=== PATIENT | female | born 1960 | race Caucasian/White ===

== ENCOUNTER 2020-09-12 14:11 | Emergency (ER) | payer SELFPAY ==
[~2020-09-12] VITALS: Ht 162.6 cm; Wt 56.8 kg
[2020-09-12] MEDS ORDERED: methylPREDNISolone SOD SUCC PF 125 MG/2 ML VIAL. IM ONE (15:00)
[2020-09-12] MEDS ORDERED: KETOROLAC 60 MG/2 ML VIAL. IM ONE (15:00)
[2020-09-12] MEDS ORDERED: FLUORESCEIN OPHTH TEST STRIP. ONE (15:05)
[2020-09-12] MEDS ORDERED: FLUORESCEIN OPHTH TEST STRIP. OS ONE (15:15)
[2020-09-12] MEDS ORDERED: TETRACAINE 0.5% OPHTH SOLUTION 4ML BOTTLE. OS ONE (15:15)
--- NOTE | 2020-09-12 15:26 | PHYS DOC ---
General Adult EDM: Chief Complaint: FOREIGN BODY/EYES HPI: HPI: Patient is a 60 year old female presented to ER for evaluation of foreign body sensation on the right upper eyelid since yesterday. Patient denies any blurred vision, no headache, no visual loss. Review of Systems: Review of Systems: Constitutional: Denies fever or chills. [] Eyes: Denies change in visual acuity. [] HENT: Denies nasal congestion or sore throat. [] Respiratory: Denies cough or shortness of breath. [] Cardiovascular: Denies chest pain or edema. [] GI: Denies abdominal pain, nausea, vomiting, bloody stools or diarrhea. [] : Denies dysuria. [] Musculoskeletal: Denies back pain or joint pain. [] Integument: Denies rash. [] Neurologic: Denies headache, focal weakness or sensory changes. [] Endocrine: Denies polyuria or polydipsia. [] Lymphatic: Denies swollen glands. [] Psychiatric: Denies depression or anxiety. [] Heart Score: Risk Factors: Risk Factors: DM, Current or recent (<one month) smoker, HTN, HLP, family history of CAD, obesity. Risk Scores: Score 0 - 3: 2.5% MACE over next 6 weeks - Discharge Home Score 4 - 6: 20.3% MACE over next 6 weeks - Admit for Clinical Observation Score 7 - 10: 72.7% MACE over next 6 weeks - Early Invasive Strategies Current Medications: Current Medications Medications (Trade) Dose Ordered Sig/Jorgito Start Time Stop Time Status Last Admin Dose Admin Fluorescein Sodium (Ful-Tashia) 1 strip 1X ONCE 09/12/20 15:15 09/12/20 15:16 DC 09/12/20 15:08 1 STRIP Ketorolac Tromethamine (Toradol Im) 60 mg 1X ONCE 09/12/20 15:00 09/12/20 15:01 UNV Methylprednisolone Sodium Succinate (SOLU-Medrol 125MG VIAL) 125 mg 1X ONCE 09/12/20 15:00 09/12/20 15:01 UNV Tetracaine HCl (Tetracaine) 1 drop 1X ONCE 09/12/20 15:15 09/12/20 15:16 DC 09/12/20 15:08 1 DROP Allergies: Allergies: Allergies Coded Allergies Type Severity Reaction Last Updated Verified No Known Drug Allergies 09/12/20 No Physical Exam: PE: Constitutional: Well developed, well nourished, no acute distress, non-toxic ap pearance. [] HENT: Normocephalic, atraumatic, bilateral external ears normal, oropharynx moist, no oral exudates, nose normal. [] Eyes: PERRLA, EOMI, conjunctiva normal, no discharge. [] Neck: Normal range of motion, no tenderness, supple, no stridor. [] Cardiovascular:Heart rate regular rhythm, no murmur [] Lungs & Thorax: Bilateral breath sounds clear to auscultation [] Abdomen: Bowel sounds normal, soft, no tenderness, no masses, no pulsatile masses. [] Skin: Warm, dry, no erythema, no rash. [] Back: No tenderness, no CVA tenderness. [] Extremities: No tenderness, no cyanosis, no clubbing, ROM intact, no edema. [] Neurologic: Alert and oriented X 3, normal motor function, normal sensory function, no focal deficits noted. [] Psychologic: Affect normal, judgement normal, mood normal. [] EKG: EKG: [] Radiology/Procedures: Radiology/Procedures: [] Course & Med Decision Making: Course & Med Decision Making Pertinent Labs and Imaging studies reviewed. (See chart for details) The right eye lid was exverted, on foreign body found, no foreign body seen on cornea,conjunctiva is not injected. NO DYE UPTAKE, NO CORNEA ABRASION. Dragon Disclaimer: Dragon Disclaimer: This electronic medical record was generated, in whole or in part, using a voice recognition dictation system. Departure Departure Impression: Primary Impression: Irritation of right eye Disposition: 01 DC HOME SELF CARE/HOMELESS Condition: STABLE Referrals: NO PCP (PCP) DOMI SWEET MD please call this opthalmologist for follow up next week. Patient Instructions: Artificial Tears eye solution Additional Instructions: Thank you for visiting our Emergency Department. We appreciate you trusting us with your care. If any additional problems come up don't hesitate to return to visit us. Please follow up with your primary care provider so they can plan additional care if needed and know about the problem that you had. If symptoms worsen come back to the Emergency Department. Any concerning symptoms that start such as chest pain, shortness of air, weakness or numbness on one side of the body, running high fevers or any other concerning symptoms return to the ER. QUOC RODRIGUEZ DO Sep 12, 2020 15:26
[2020-09-12 15:40] VITALS: BP 138/71
== END 2020-09-12 15:40 | disposition home or self-care (01) ==
LOC: ER 14:11
DX: H57.89 Other specified disorders of eye and adnexa (principal)
CPT/HCPCS: 99283